=== PATIENT | female | born 1955 | race Caucasian/White ===

== ENCOUNTER 2017-10-14 14:01 | Emergency (ER) | payer MEDICARE, SELFPAY ==
[2017-10-14] VITALS (9 sets, daily range): BP systolic 123–181; BP diastolic 74–133; PULSE 85–105; RESP 14–32; TEMP 37.4; O2SAT 92–99; BMI 38.6
--- NOTE | 2017-10-14 14:13 | DI.RAD.S_ITS ---
PROCEDURE: XR CHEST 1V INDICATIONS: chest pain TECHNIQUE: One view of the chest was acquired. COMPARISON: None. FINDINGS: Surgical changes and devices: None. Lungs and pleura: No pleural effusions or pneumothorax. 2.2 cm nodular opacity noted in the left midlung. Mediastinum: Mediastinal contours appear normal. Heart size is enlarged. Bones and chest wall: No suspicious bony lesions. Overlying soft tissues appear unremarkable. IMPRESSION: 1. 2.2 cm left lung nodule. Recommend CT scan for further evaluation. 2. Cardiomegaly. Dictated by: Toña Hi MD, PhD on 10/14/2017 at 14:55 Approved by: Toña Hi MD, PhD on 10/14/2017 at 14:57
--- NOTE | 2017-10-14 14:24 | ED_ITS ---
HPI - SOB/Dyspnea <QING Pearson - Last Filed: 10/14/17 22:03> General Chief Complaint: Shortness of Breath/Dyspnea Stated Complaint: CAN'T BREATH,CONGESTIVE HEART FAILURE Time Seen by Provider: 10/14/17 14:24 History of Present Illness 61-year-old female here for complaint of shortness of breath over the last several days. She was unclear as to how many days that she has been feeling the shortness of breath. She reports that she has had cough as well that has been productive. She denies having any fevers. She also states that she has had mild generalized abdominal pain. She reports worsening shortness of breath over the past couple of days. She states she has a history of CHF and mitral valve regurgitation. Also states that she has had cardiac stent placed as well. She states that she does not have chest pain per she however she states that she does does not feel well. She denies any stressors relievers of her discomfort. Although she does state that her abdominal pain is increased with cough. Related Data Home Medications Medication Instructions Recorded Confirmed albuterol sulfate 2 puff INHALATION Q4-6H PRN 10/14/17 10/14/17 aspirin [Aspirin Low Dose] 81 mg PO DAILY 10/14/17 10/14/17 carvedilol [Coreg] 25 mg PO BID 10/14/17 10/14/17 furosemide [Lasix] 40 mg PO DAILY 10/14/17 10/14/17 multivitamin [Multiple Vitamins] 1 tab PO DAILY 10/14/17 10/14/17 potassium chloride 20 meq PO DAILY 10/14/17 10/14/17 valsartan [Diovan] 40 mg PO DAILY 10/14/17 10/14/17 Allergies Allergy/AdvReac Type Severity Reaction Status Date / Time No Known Drug Allergies Allergy Verified 10/14/17 14:10 Review of Systems <QING Pearson - Last Filed: 10/14/17 22:03> Constitutional Denies chills, Denies fever(s), Denies lethargy and Denies weakness Eyes Denies change in vision, Denies eye discharge, Denies irritation and Denies loss of vision ENT Ears, Nose, Mouth, and Throat: Denies change in voice, Denies neck pain and Denies sore throat Cardiovascular Reports dyspnea Respiratory Reports cough and Reports dyspnea Gastrointestinal Gastrointestinal: Reports abdominal pain Musculoskeletal Denies neck pain Integumentary/Breasts Denies pruritus, Denies erythema, Denies rash and Denies wounds Neurologic Denies loss of vision and Denies weakness Exam <QING Pearson - Last Filed: 10/14/17 22:03> Initial Vital Signs Initial Vital Signs: Vital Signs Temperature 99.3 F 10/14/17 14:05 Pulse Rate 102 H 10/14/17 14:05 Respiratory Rate 32 H 10/14/17 14:05 Blood Pressure 134/83 H 10/14/17 14:05 Pulse Oximetry 99 10/14/17 14:05 Const General: cooperative and acute distress Nutritional Appearance: well nourished Orientation: alert, awake, oriented x3 and not confused HENWI Mouth: oral mucosae normal, oropharynx normal and moist mucous membranes Eyes Sclera: sclerae normal Cornea: corneas normal Pupils: PERRL EOM: EOM intact bilaterally Neck Neck: normal visual inspection, trachea midline, No lymphadenopathy, No midline deformity and No JVD Lymphatic: No lymphedema Chest Chest: normal inspection of the chest Resp Effort & Inspection: tachypneic Auscultation: rales bilaterally and wheezes Cardio Rate: tachycardic Rhythm: regular rhythm Heart Sounds: no click, no gallops, no murmurs and no rubs Pulses: normal peripheral pulses GI Inspection: non-distended Palpation: soft, no hepatosplenomegaly, No guarding, No pulsatile mass and tender Auscultation: normal bowel sounds General: No CVA tenderness Skin General: no rashes or lesions noted, No jaundice and No petechiae <Benjamin Herzog DO - Last Filed: 10/22/17 18:06> Initial Vital Signs Initial Vital Signs: Vital Signs Temperature 99.3 F 10/14/17 14:05 Pulse Rate 102 H 10/14/17 14:05 Respiratory Rate 32 H 10/14/17 14:05 Blood Pressure 134/83 H 10/14/17 14:05 Pulse Oximetry 99 10/14/17 14:05 Course <QING Pearson - Last Filed: 10/14/17 22:03> Orders Ordered: Discontinued Medications Albuterol/Ipratropium (Duoneb) 3 ml INH NOW ONE Stop: 10/14/17 14:30 Last Admin: 10/14/17 14:32 Dose: 3 ml Aspirin (Aspirin Chew) 324 mg PO NOW ONE Stop: 10/14/17 14:14 Last Admin: 10/14/17 14:36 Dose: 324 mg Enoxaparin Sodium (Lovenox) 100 mg 1 mg/kg (100 mg) SUBCUT NOW ONE Stop: 10/14/17 17:33 Last Admin: 10/14/17 19:19 Dose: 100 mg Furosemide (Lasix) 80 mg IV NOW ONE Stop: 10/14/17 15:58 Last Admin: 10/14/17 16:08 Dose: 80 mg Methylprednisolone (Solu-Medrol 125 Mg Vial) 125 mg IV NOW ONE Stop: 10/14/17 14:39 Last Admin: 10/14/17 14:49 Dose: 125 mg Morphine Sulfate (Morphine) 4 mg IV NOW ONE Stop: 10/14/17 14:38 Last Admin: 10/14/17 14:44 Dose: 4 mg Ondansetron HCl (Zofran) 4 mg IV NOW ONE Stop: 10/14/17 14:15 Last Admin: 10/14/17 14:37 Dose: 4 mg Vital Signs - 8 hr 10/14/17 14:05 10/14/17 14:54 10/14/17 16:00 Temperature 99.3 F Pulse Rate 102 H 105 H 101 H Respiratory Rate 32 H 19 21 Blood Pressure 134/83 H Blood Pressure [Left Arm] 155/133 H 138/74 H Pulse Oximetry 99 95 95 10/14/17 16:30 10/14/17 17:00 10/14/17 17:08 Temperature 99.3 F Pulse Rate 102 H 100 H 102 H Respiratory Rate 14 26 H 14 Blood Pressure 134/83 H Blood Pressure [Left Arm] 123/84 H 155/96 H Pulse Oximetry 97 93 97 10/14/17 17:30 10/14/17 18:18 10/14/17 19:30 Temperature Pulse Rate 102 H 100 H 85 Respiratory Rate 15 22 19 Blood Pressure Blood Pressure [Left Arm] 181/112 H 146/85 H 145/94 H Pulse Oximetry 94 92 <Benjamin Herzog DO - Last Filed: 10/22/17 18:06> Orders Ordered: Discontinued Medications Albuterol/Ipratropium (Duoneb) 3 ml INH NOW ONE Stop: 10/14/17 14:30 Last Admin: 10/14/17 14:32 Dose: 3 ml Aspirin (Aspirin Chew) 324 mg PO NOW ONE Stop: 10/14/17 14:14 Last Admin: 10/14/17 14:36 Dose: 324 mg Enoxaparin Sodium (Lovenox) 100 mg 1 mg/kg (100 mg) SUBCUT NOW ONE Stop: 10/14/17 17:33 Last Admin: 10/14/17 19:19 Dose: 100 mg Furosemide (Lasix) 80 mg IV NOW ONE Stop: 10/14/17 15:58 Last Admin: 10/14/17 16:08 Dose: 80 mg Methylprednisolone (Solu-Medrol 125 Mg Vial) 125 mg IV NOW ONE Stop: 10/14/17 14:39 Last Admin: 10/14/17 14:49 Dose: 125 mg Morphine Sulfate (Morphine) 4 mg IV NOW ONE Stop: 10/14/17 14:38 Last Admin: 10/14/17 14:44 Dose: 4 mg Ondansetron HCl (Zofran) 4 mg IV NOW ONE Stop: 10/14/17 14:15 Last Admin: 10/14/17 14:37 Dose: 4 mg Vital Signs - 8 hr 10/14/17 14:05 10/14/17 14:54 10/14/17 16:00 Temperature 99.3 F Pulse Rate 102 H 105 H 101 H Respiratory Rate 32 H 19 21 Blood Pressure 134/83 H Blood Pressure [Left Arm] 155/133 H 138/74 H Pulse Oximetry 99 95 95 10/14/17 16:30 10/14/17 17:00 10/14/17 17:08 Temperature 99.3 F Pulse Rate 102 H 100 H 102 H Respiratory Rate 14 26 H 14 Blood Pressure 134/83 H Blood Pressure [Left Arm] 123/84 H 155/96 H Pulse Oximetry 97 93 97 10/14/17 17:30 10/14/17 18:18 10/14/17 19:30 Temperature Pulse Rate 102 H 100 H 85 Respiratory Rate 15 22 19 Blood Pressure Blood Pressure [Left Arm] 181/112 H 146/85 H 145/94 H Pulse Oximetry 94 92 MDM - SOB/Dyspnea <QING Pearson - Last Filed: 10/14/17 22:03> Lab Data Result diagrams: 10/14/17 14:30 10/14/17 14:30 Lab Results 10/14/17 10/14/17 10/14/17 Range/Units 14:30 14:30 14:30 WBC 13.4 H (4.5-11.0) X10^3/uL RBC 4.82 (4.0-5.2) X10^6/uL Hgb 14.1 (12.0-16.0) g/dL Hct 43.3 (36-46) % MCV 89.9 (80-100) fL MCH 29.2 (26-34) PG MCHC 32.5 (30-36) % RDW 18.1 H (11.6-14.8) % Plt Count 358 (150-400) X10^3/uL Neut % (Auto) 84.9 H (50-75) % Lymph % (Auto) 6.6 L (25-40) % Hughes % (Auto) 7.9 (3-14) % Eos % (Auto) 0.4 L (2-4) % Baso % (Auto) 0.2 (0-2) % Neut # (Auto) 94196 H (2248-0544) /uL PT 12.7 (10.1-12.7) SECONDS INR 1.2 (0.9-1.3) APTT 21 L (26.4-36.2) SECONDS Sodium 136 L (137-145) mmol/L Potassium 3.8 (3.4-5.1) mmol/L Chloride 94 L (98-107) mmol/L Carbon Dioxide 34 H (22-32) mmol/L BUN 25 H (7-17) mg/dL Creatinine 1.10 H (0.52-1.04) mg/dL Estimated GFR 50.8 L (>60) mL/min BUN/Creatinine Ratio 22.7 H (6-22) Glucose 89 (70-100) mg/dL Calcium 9.3 (8.4-10.2) mg/dL Total Bilirubin 1.2 (0.2-1.3) mg/dL AST 46 H (14-36) IU/L ALT 52 (9-52) IU/L Alkaline Phosphatase 115 (38-126) U/L Total Creatine Kinase 166 H (30-135) U/L CK-MB (CK-2) 1.86 (<2.37) ng/mL CK-MB (CK-2) Rel Index 1.1 L (1.5-5.0) % Troponin I 0.028 (0.01-0.034) ng/mL B-Natriuretic Peptide (<100) Total Protein 6.8 (6.3-8.2) g/dL Albumin 3.8 (3.5-5.0) g/dL Globulin 3.0 (1.7-4.1) g/dL Albumin/Globulin Ratio 1.3 (1.0-2.8) Lipase 123 (23-300) U/L 10/14/17 Range/Units 14:50 WBC (4.5-11.0) X10^3/uL RBC (4.0-5.2) X10^6/uL Hgb (12.0-16.0) g/dL Hct (36-46) % MCV (80-100) fL MCH (26-34) PG MCHC (30-36) % RDW (11.6-14.8) % Plt Count (150-400) X10^3/uL Neut % (Auto) (50-75) % Lymph % (Auto) (25-40) % Hughes % (Auto) (3-14) % Eos % (Auto) (2-4) % Baso % (Auto) (0-2) % Neut # (Auto) (9842-8936) /uL PT (10.1-12.7) SECONDS INR (0.9-1.3) APTT (26.4-36.2) SECONDS Sodium (137-145) mmol/L Potassium (3.4-5.1) mmol/L Chloride (98-107) mmol/L Carbon Dioxide (22-32) mmol/L BUN (7-17) mg/dL Creatinine (0.52-1.04) mg/dL Estimated GFR (>60) mL/min BUN/Creatinine Ratio (6-22) Glucose (70-100) mg/dL Calcium (8.4-10.2) mg/dL Total Bilirubin (0.2-1.3) mg/dL AST (14-36) IU/L ALT (9-52) IU/L Alkaline Phosphatase (38-126) U/L Total Creatine Kinase (30-135) U/L CK-MB (CK-2) (<2.37) ng/mL CK-MB (CK-2) Rel Index (1.5-5.0) % Troponin I (0.01-0.034) ng/mL B-Natriuretic Peptide 979.0 H (<100) Total Protein (6.3-8.2) g/dL Albumin (3.5-5.0) g/dL Globulin (1.7-4.1) g/dL Albumin/Globulin Ratio (1.0-2.8) Lipase (23-300) U/L Imaging Data Chest x-ray: Radiologist's impression: PROCEDURE: XR CHEST 1V INDICATIONS: chest pain TECHNIQUE: One view of the chest was acquired. COMPARISON: None. FINDINGS: Surgical changes and devices: None. Lungs and pleura: No pleural effusions or pneumothorax. 2.2 cm nodular opacity noted in the left midlung. Mediastinum: Mediastinal contours appear normal. Heart size is enlarged. Bones and chest wall: No suspicious bony lesions. Overlying soft tissues appear unremarkable. IMPRESSION: 1. 2.2 cm left lung nodule. Recommend CT scan for further evaluation. 2. Cardiomegaly. Dictated by: Toña Hi MD, PhD on 10/14/2017 at 14:55 Approved by: Toña Hi MD, PhD on 10/14/2017 at 14:57 CT scan - abdomen: Radiologist's impression: PROCEDURE: CT ABDOMEN PELVIS W CON INDICATIONS: Shortness of breath chest pain abdominal pain TECHNIQUE: After the administration of intravenous contrast, 5 mm thick sections acquired from the diaphragm to the symphysis. 5 mm coronal and sagittal reformats were acquired. For radiation dose reduction, the following was used: automated exposure control, adjustment of mA and/or kV according to patient size. COMPARISON: None. FINDINGS: Image quality: Excellent. ABDOMEN: Lung bases: Pulmonary embolus left lower lobe, bibasilar atelectasis and small left pleural effusion. Heart is enlarged. Solid organs: Liver is normal in size with hypodense enhancement. Gallbladder appears normal. Biliary system is non dilated. Pancreas enhances normally. Spleen is normal in size and enhancement. No adrenal nodules. Kidneys demonstrate marked cortical thinning without hydronephrosis. Peritoneum and bowel: Small bowel loops demonstrate normal wall thickness and caliber. The appendix is not seen. No evidence of appendicitis. The colon is unremarkable except for mild, diffuse wall thickening throughout the descending segment, no associated diverticular disease or localized fat stranding. No air. There is mild ascites. Nodes and vessels: No retroperitoneal or mesenteric adenopathy by size criteria. Aorta and inferior vena cava are normal in size. Miscellaneous: No ventral hernias. Diffuse fat stranding throughout the abdominal and pelvic soft tissues. PELVIS: Genitourinary: Bladder wall thickness is normal. Uterus is enlarged secondary to an 8 cm sized fibroid Miscellaneous: No inguinal hernias or adenopathy. Bones: No suspicious bony lesions. No vertebral body compression fractures. IMPRESSION: 1. Pulmonary emboli, basilar atelectasis and left pleural effusion redemonstrated. 2. Cardiomegaly. 3. Mild to moderate ascites and soft tissue anasarca. 4. 8 cm sized uterine fibroid. No adnexal abnormalities. 5. Nonspecific, mild colonic wall thickening throughout the descending segment. Possible colitis. 6. Hepatic steatosis. 7. Bilateral renal cortical thinning. Dictated by: Andrae Mata M.D. on 10/14/2017 at 16:33 Approved by: Andrae Mata M.D. on 10/14/2017 at 16:41 CT scan - chest: Radiologist's impression: PROCEDURE: CT ANGIO CHEST PE PROTOCOL INDICATIONS: Shortness of breath chest pain, abdominal pain TECHNIQUE: After the administration of intravenous contrast, 2 mm thick sections acquired from the pulmonary apices to the posterior costophrenic angles. 3-dimensional maximum intensity projection (MIP) coronal and sagittal reformats were then acquired through the thorax. For radiation dose reduction, the following was used: automated exposure control, adjustment of mA and/or kV according to patient size. COMPARISON: Located Within [facility], CT, CT ABDOMEN PELVIS W CON, 10/14/2017, 15:36. Located Within [facility], CR, XR CHEST 1V, 10/14/2017, 14:42. FINDINGS: Image quality: Excellent. Pulmonary arteries: Pulmonary arteries are normal in size. There is definitive intraluminal filling defect in the posterior basilar segment arteries of the left lower lobe. There appear to be smaller intraluminal defects in the right upper and lower lobe vessels. No central or saddle emboli seen. Lungs and pleura: A left upper lobe/lingular subpleural mass measuring 1.8 x 2.8 cm x 1.7 cm craniocaudal correlates with the finding on plain film. There is mild atelectasis or scarring at the base of the lingula. Bibasilar atelectasis is also present, left greater than right. A small left pleural effusion is apparent. No pneumothorax. Central and peripheral airways are patent. Mediastinum: Heart size is enlarged, with a trace pericardial effusion. There is right mediastinal and hilar adenopathy, right precarinal node measuring 1.4 cm and right hilar node measuring 1.9 cm. Thoracic aorta is normal in caliber and enhancement. Esophagus is normal in caliber, without hiatal hernia. Bones and chest wall: No suspicious bony lesions. Chronic appearing fracture left eighth rib. No vertebral compression fractures seen. 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 Thyroid gland appears normal. No axillary or supraclavicular adenopathy. Abdomen: Visualized upper abdominal solid organs appear normal in the early arterial phase of enhancement. The small amount of ascites is present around the liver. IMPRESSION: 1. Exam is positive for pulmonary embolic disease, low clot burden, left greater than right. 2. Left lower lobe atelectasis and small left pleural effusion, probably secondary to pulmonary embolic disease but nonspecific. 3. Subpleural mass anterolateral lingula measures 2.8 cm, corresponding to plain film finding. Differential includes rounded atelectasis but malignancy cannot be excluded. Findings appears amenable to percutaneous biopsy, however PET/CT imaging is suggested in view of adenopathy. 4. Mediastinal and right hilar lymphadenopathy could be reactive but the possibility of malignant adenopathy cannot be excluded, especially considering evidence of left upper lobe mass. 5. Cardiomegaly with a small right pericardial effusion. 6. Mild ascites. CT abdomen and pelvis is reported separately. Note: Report called to Dr. Herzog in the ED at 1630 hrs. on 10/14/2017 Dictated by: Andrae Mata M.D. on 10/14/2017 at 16:05 Approved by: Andrae Mata M.D. on 10/14/2017 at 16:33 ECG Data Interpretation: EKG shows sinus tachycardia. No ST elevation or depression. Ventricular rate of 109. Pr interval 163. QRS duration of 87. QT of 308. MDM Narrative Medical decision making narrative: PE protocol CT was obtained and is positive for a PE benign saddle left greater than right. Abdominal CT shows indication of colitis due to thickening bowel wyatt. CT of chest also shows a mass to the left upper lobe of unknown etiology with adenopathy showing possible malignancy. Cardiac enzymes were obtained were unremarkable. She was given Lovenox subq in the emergency room. Patient had received 4 L of oxygen to maintain oxygen saturations above 90% as she desatted to mid 80% on room air. BNP was elevated at 975. She was given 80 mg of Lasix in the emergency room. Patient effort of breathing was reduced while in the emergency room. Due to evidence of heart strain with elevated BNP [facility] Patient transferred to [facility] for further evaluation and treatment. <Benjamin Herzog DO - Last Filed: 10/22/17 18:06> Lab Data Lab Results 10/14/17 10/14/17 10/14/17 Range/Units 14:30 14:30 14:30 WBC 13.4 H (4.5-11.0) X10^3/uL RBC 4.82 (4.0-5.2) X10^6/uL Hgb 14.1 (12.0-16.0) g/dL Hct 43.3 (36-46) % MCV 89.9 (80-100) fL MCH 29.2 (26-34) PG MCHC 32.5 (30-36) % RDW 18.1 H (11.6-14.8) % Plt Count 358 (150-400) X10^3/uL Neut % (Auto) 84.9 H (50-75) % Lymph % (Auto) 6.6 L (25-40) % Hughes % (Auto) 7.9 (3-14) % Eos % (Auto) 0.4 L (2-4) % Baso % (Auto) 0.2 (0-2) % Neut # (Auto) 30602 H (8559-7990) /uL PT 12.7 (10.1-12.7) SECONDS INR 1.2 (0.9-1.3) APTT 21 L (26.4-36.2) SECONDS Sodium 136 L (137-145) mmol/L Potassium 3.8 (3.4-5.1) mmol/L Chloride 94 L (98-107) mmol/L Carbon Dioxide 34 H (22-32) mmol/L BUN 25 H (7-17) mg/dL Creatinine 1.10 H (0.52-1.04) mg/dL Estimated GFR 50.8 L (>60) mL/min BUN/Creatinine Ratio 22.7 H (6-22) Glucose 89 (70-100) mg/dL Calcium 9.3 (8.4-10.2) mg/dL Total Bilirubin 1.2 (0.2-1.3) mg/dL AST 46 H (14-36) IU/L ALT 52 (9-52) IU/L Alkaline Phosphatase 115 (38-126) U/L Total Creatine Kinase 166 H (30-135) U/L CK-MB (CK-2) 1.86 (<2.37) ng/mL CK-MB (CK-2) Rel Index 1.1 L (1.5-5.0) % Troponin I 0.028 (0.01-0.034) ng/mL B-Natriuretic Peptide (<100) Total Protein 6.8 (6.3-8.2) g/dL Albumin 3.8 (3.5-5.0) g/dL Globulin 3.0 (1.7-4.1) g/dL Albumin/Globulin Ratio 1.3 (1.0-2.8) Lipase 123 (23-300) U/L 10/14/17 Range/Units 14:50 WBC (4.5-11.0) X10^3/uL RBC (4.0-5.2) X10^6/uL Hgb (12.0-16.0) g/dL Hct (36-46) % MCV (80-100) fL MCH (26-34) PG MCHC (30-36) % RDW (11.6-14.8) % Plt Count (150-400) X10^3/uL Neut % (Auto) (50-75) % Lymph % (Auto) (25-40) % Hughes % (Auto) (3-14) % Eos % (Auto) (2-4) % Baso % (Auto) (0-2) % Neut # (Auto) (0714-1908) /uL PT (10.1-12.7) SECONDS INR (0.9-1.3) APTT (26.4-36.2) SECONDS Sodium (137-145) mmol/L Potassium (3.4-5.1) mmol/L Chloride (98-107) mmol/L Carbon Dioxide (22-32) mmol/L BUN (7-17) mg/dL Creatinine (0.52-1.04) mg/dL Estimated GFR (>60) mL/min BUN/Creatinine Ratio (6-22) Glucose (70-100) mg/dL Calcium (8.4-10.2) mg/dL Total Bilirubin (0.2-1.3) mg/dL AST (14-36) IU/L ALT (9-52) IU/L Alkaline Phosphatase (38-126) U/L Total Creatine Kinase (30-135) U/L CK-MB (CK-2) (<2.37) ng/mL CK-MB (CK-2) Rel Index (1.5-5.0) % Troponin I (0.01-0.034) ng/mL B-Natriuretic Peptide 979.0 H (<100) Total Protein (6.3-8.2) g/dL Albumin (3.5-5.0) g/dL Globulin (1.7-4.1) g/dL Albumin/Globulin Ratio (1.0-2.8) Lipase (23-300) U/L Discharge Plan Departure Patient Disposition: [facility] Clinical Impression: Congestive heart failure, Pulmonary embolism Discharge Date/Time: 10/14/17 20:04 Interventions: ED Discharge Assessment Last Done: 10/14/17 20:03 Prescriptions: No Action multivitamin [Multiple Vitamins] Tablet 1 tab PO DAILY RF: 0 furosemide [Lasix] 40 mg Tablet 40 mg PO DAILY RF: 0 carvedilol [Coreg] 25 mg Tablet 25 mg PO BID RF: 0 aspirin [Aspirin Low Dose] 81 mg Tablet,Delayed Release (Dr/Ec) 81 mg PO DAILY RF: 0 albuterol sulfate 90 mcg/actuation Hfa Aerosol Inhaler 2 puff INHALATION Q4-6H PRN (Reason: Wheezing) RF: 0 valsartan [Diovan] 40 mg Tablet 40 mg PO DAILY RF: 0 potassium chloride 20 mEq Tablet Extended Release 20 meq PO DAILY RF: 0 <Benjamin Herzog DO - Last Filed: 10/22/17 18:06> Cosign ED Attending [place] Attestation: I was immediately available in the department for consultation. Documentation has been reviewed. I agree with assessment and plan.
[2017-10-14] MEDS: ALBUTEROL/IPRATROPIUM 3 ML AMPUL INH (14:32)
[2017-10-14 14:34] LABS: Add Manual Diff / Slide Review NO; Basophils Percent Auto 0.2 % (0-2); Eosinophils Percent Auto 0.4 % (2-4); Hematocrit 43.3 % (36-46); Hemoglobin 14.1 g/dL (12.0-16.0); Lymphocytes Percent Auto 6.6 % (25-40); Mean Corpuscular HGB Conc 32.5 % (30-36); Mean Corpuscular Hemoglobin 29.2 PG (26-34); Mean Corpuscular Volume 89.9 fL (80-100); Monocytes Percent Auto 7.9 % (3-14); Neutrophils Absolute Auto 11400 /uL (3000-5900); Neutrophils Percent Auto 84.9 % (50-75); Platelet Count 358 X10^3/uL (150-400); Red Blood Cell Count 4.82 X10^6/uL (4.0-5.2); Red Cell Distribution Width 18.1 % (11.6-14.8); White Blood Cell Count 13.4 X10^3/uL (4.5-11.0)
[2017-10-14] MEDS: ASPIRIN 81 MG TAB 324 MG PO (14:36)
[2017-10-14] MEDS: ONDANSETRON 4 MG/2 ML INJ IV (14:37)
--- NOTE | 2017-10-14 14:37 | DI.CT.S_ITS ---
PROCEDURE: CT ANGIO CHEST PE PROTOCOL INDICATIONS: Shortness of breath chest pain, abdominal pain TECHNIQUE: After the administration of intravenous contrast, 2 mm thick sections acquired from the pulmonary apices to the posterior costophrenic angles. 3-dimensional maximum intensity projection (MIP) coronal and sagittal reformats were then acquired through the thorax. For radiation dose reduction, the following was used: automated exposure control, adjustment of mA and/or kV according to patient size. COMPARISON: [facility], CT, CT ABDOMEN PELVIS W CON, 10/14/2017, 15:36. [facility], CR, XR CHEST 1V, 10/14/2017, 14:42. FINDINGS: Image quality: Excellent. Pulmonary arteries: Pulmonary arteries are normal in size. There is definitive intraluminal filling defect in the posterior basilar segment arteries of the left lower lobe. There appear to be smaller intraluminal defects in the right upper and lower lobe vessels. No central or saddle emboli seen. Lungs and pleura: A left upper lobe/lingular subpleural mass measuring 1.8 x 2.8 cm x 1.7 cm craniocaudal correlates with the finding on plain film. There is mild atelectasis or scarring at the base of the lingula. Bibasilar atelectasis is also present, left greater than right. A small left pleural effusion is apparent. No pneumothorax. Central and peripheral airways are patent. Mediastinum: Heart size is enlarged, with a trace pericardial effusion. There is right mediastinal and hilar adenopathy, right precarinal node measuring 1.4 cm and right hilar node measuring 1.9 cm. Thoracic aorta is normal in caliber and enhancement. Esophagus is normal in caliber, without hiatal hernia. Bones and chest wall: No suspicious bony lesions. Chronic appearing fracture left eighth rib. No vertebral compression fractures seen. 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 Thyroid gland appears normal. No axillary or supraclavicular adenopathy. Abdomen: Visualized upper abdominal solid organs appear normal in the early arterial phase of enhancement. The small amount of ascites is present around the liver. IMPRESSION: 1. Exam is positive for pulmonary embolic disease, low clot burden, left greater than right. 2. Left lower lobe atelectasis and small left pleural effusion, probably secondary to pulmonary embolic disease but nonspecific. 3. Subpleural mass anterolateral lingula measures 2.8 cm, corresponding to plain film finding. Differential includes rounded atelectasis but malignancy cannot be excluded. Findings appears amenable to percutaneous biopsy, however PET/CT imaging is suggested in view of adenopathy. 4. Mediastinal and right hilar lymphadenopathy could be reactive but the possibility of malignant adenopathy cannot be excluded, especially considering evidence of left upper lobe mass. 5. Cardiomegaly with a small right pericardial effusion. 6. Mild ascites. CT abdomen and pelvis is reported separately. Note: Report called to Dr. Herzog in the ED at 1630 hrs. on 10/14/2017 Dictated by: Andrae Mata M.D. on 10/14/2017 at 16:05 Approved by: Andrae Mata M.D. on 10/14/2017 at 16:33
--- NOTE | 2017-10-14 14:37 | DI.CT.S_ITS ---
PROCEDURE: CT ABDOMEN PELVIS W CON INDICATIONS: Shortness of breath chest pain abdominal pain TECHNIQUE: After the administration of intravenous contrast, 5 mm thick sections acquired from the diaphragm to the symphysis. 5 mm coronal and sagittal reformats were acquired. For radiation dose reduction, the following was used: automated exposure control, adjustment of mA and/or kV according to patient size. COMPARISON: None. FINDINGS: Image quality: Excellent. ABDOMEN: Lung bases: Pulmonary embolus left lower lobe, bibasilar atelectasis and small left pleural effusion. Heart is enlarged. Solid organs: Liver is normal in size with hypodense enhancement. Gallbladder appears normal. Biliary system is non dilated. Pancreas enhances normally. Spleen is normal in size and enhancement. No adrenal nodules. Kidneys demonstrate marked cortical thinning without hydronephrosis. Peritoneum and bowel: Small bowel loops demonstrate normal wall thickness and caliber. The appendix is not seen. No evidence of appendicitis. The colon is unremarkable except for mild, diffuse wall thickening throughout the descending segment, no associated diverticular disease or localized fat stranding. No air. There is mild ascites. Nodes and vessels: No retroperitoneal or mesenteric adenopathy by size criteria. Aorta and inferior vena cava are normal in size. Miscellaneous: No ventral hernias. Diffuse fat stranding throughout the abdominal and pelvic soft tissues. PELVIS: Genitourinary: Bladder wall thickness is normal. Uterus is enlarged secondary to an 8 cm sized fibroid Miscellaneous: No inguinal hernias or adenopathy. Bones: No suspicious bony lesions. No vertebral body compression fractures. IMPRESSION: 1. Pulmonary emboli, basilar atelectasis and left pleural effusion redemonstrated. 2. Cardiomegaly. 3. Mild to moderate ascites and soft tissue anasarca. 4. 8 cm sized uterine fibroid. No adnexal abnormalities. 5. Nonspecific, mild colonic wall thickening throughout the descending segment. Possible colitis. 6. Hepatic steatosis. 7. Bilateral renal cortical thinning. Dictated by: Andrae Mata M.D. on 10/14/2017 at 16:33 Approved by: Andrae Mata M.D. on 10/14/2017 at 16:41
--- NOTE | 2017-10-14 14:40 | PC.NURSE ---
labs obtained with initially IV attemp by Martin GARCIA
[2017-10-14 14:41] LABS: INR 1.2 (0.9-1.3); Prothrombin Time 12.7 SECONDS (10.1-12.7)
[2017-10-14 14:44] LABS: PTT Partial Thromboplastin Tim 21 SECONDS (26.4-36.2)
[2017-10-14] MEDS: MORPHINE 4 MG/ML INJ IV (14:44)
[2017-10-14 14:47] LABS: Alanine Aminotransferase 52 IU/L (9-52); Albumin 3.8 g/dL (3.5-5.0); Albumin Globulin Ratio 1.3 (1.0-2.8); Alkaline Phosphatase 115 U/L (38-126); Aspartate Aminotransferase 46 IU/L (14-36); BUN Creatinine Ratio 22.7 (6-22); Bilirubin Total 1.2 mg/dL (0.2-1.3); Blood Urea Nitrogen 25 mg/dL (7-17); Calcium 9.3 mg/dL (8.4-10.2); Carbon Dioxide 34 mmol/L (22-32); Chloride 94 mmol/L (98-107); Creatine Kinase 166 U/L (30-135); Estimated Glomerular Filt Rate 50.8 mL/min (>60); Glucose 89 mg/dL (70-100); HEMOLYSIS 33 (0-50); Lipase 123 U/L (23-300); Potassium 3.8 mmol/L (3.4-5.1); Sodium 136 mmol/L (137-145); Total Protein 6.8 g/dL (6.3-8.2)
[2017-10-14] MEDS: methylPREDNISolone 125 MG/2 ML VIAL IV (14:49)
[2017-10-14 14:59] LABS: Troponin I 0.028 ng/mL (0.01-0.034)
[2017-10-14 15:03] LABS: CKMB % Relative Index 1.1 % (1.5-5.0); Creatine Kinase MB 1.86 ng/mL (<2.37)
--- NOTE | 2017-10-14 15:37 | PC.NURSE ---
Larger bore catheter needed for PE study
[2017-10-14] MEDS: FUROSEMIDE 100 MG/10 ML VIAL 80 MG IV (16:08)
--- NOTE | 2017-10-14 16:12 | PC.NURSE ---
Sats in high 80's. Placed on oxygen by MANAGER GOLF at 4L by Luzmaria GARCIA
[2017-10-14] MEDS: ENOXAPARIN 100 MG/ML SYRINGE SUBCUT (19:19)
== END 2017-10-14 20:04 | disposition short-term general hospital (02) ==
PROVIDERS: Emergency Medicine; Emergency Provider Nurse Practitioner Family
DX: I50.9 Heart failure, unspecified (principal); I26.99 Other pulmonary embolism without acute cor pulmonale
CPT/HCPCS: 36591; 71045; 71275; 74177; 80053; 82550; 82553; 83690; 83880; 84484; 85025; 85610; 85730; 93005; 94640; 96372; 96374; 96375; 99285; J1650; J1940; J2270; J2405; J2930; Q9967